=== PATIENT | male | born 1990 | race Caucasian/White ===

== ENCOUNTER 2024-11-17 15:31 | Emergency (ER) | payer OTHER ==
[~2024-11-17] VITALS: Ht 182.9 cm; Wt 121.6 kg
[~2024-11-17 15:31] MED LIST: ADDERALL 20 MG20 MG PO; CITROMA296 ML PO; DICYCLOMINE HCL10 MG PO; ONDANSETRON ODT8 MG PO
[2024-11-17 17:27] VITALS: BP 120/97
== END 2024-11-17 17:25 | disposition home or self-care (01) ==
LOC: ED 15:31
DX: R03.0 Elevated blood-pressure reading, without diagnosis of hypertension (principal); F17.200 Nicotine dependence, unspecified, uncomplicated
CPT/HCPCS: 99282